=== PATIENT | male | born 1995 | race Caucasian/White ===

== ENCOUNTER 2021-01-22 21:58 | Emergency (ER) | payer OTHER ==
[~2021-01-22] VITALS: Ht 180.3 cm; Wt 93.4 kg
[2021-01-22 22:47] LABS: BASO % 0.4 % (0.0-1.0); EOS # 0.1 10^3/uL (0.0-0.5); EOS % 1.2 % (0.0-3.0); HEMATOCRIT 42.4 % (42.0-52.0); HEMOGLOBIN 14.5 g/dl (13.5-17.5); LYMPH # 2.5 10^3/uL (1.5-5.0); LYMPH % 30.7 % (24.0-44.0); MEAN CORPUSCULAR HEMOGLOBIN 28.8 pg (27.0-33.0); MEAN CORPUSCULAR HGB CONC 34.2 g/dl (32.0-36.5); MEAN CORPUSCULAR VOLUME 84.3 fl (80.0-96.0); MONO # 0.9 10^3/uL (0.0-0.8); MONO % 10.6 % (2.0-8.0); NEUTROPHILS # 4.6 10^3/uL (1.5-8.5); NEUTROPHILS % 56.7 % (36.0-66.0); PLATELET COUNT, AUTOMATED 226 10^3/uL (150-450); RED BLOOD COUNT 5.03 10^6/uL (4.30-6.10); WHITE BLOOD COUNT 8.2 10^3/uL (4.0-10.0)
--- NOTE | 2021-01-22 23:30 | REPVR ---
PROCEDURE INFORMATION: Exam: XR Chest Exam date and time: 01/22/21 (10:41pm) Age: 25 years old Clinical indication: Subjective fever TECHNIQUE: Imaging protocol: Portable CXR Views: 1 view COMPARISON: No relevant prior studies available FINDINGS: Lungs: Unremarkable. No consolidation. Pleural spaces: Unremarkable. No pleural effusions. No pneumothorax. Heart/Mediastinum: Unremarkable. No cardiomegaly. Bones/joints: Unremarkable. IMPRESSION: No acute findings. Clear lung greco. Electronically signed by: Gillian Antonio On 01/22/2021 23:29:58 PM
[2021-01-22] MEDS ORDERED: IBUP-1022 PO (23:45)
[2021-01-22 23:58] VITALS: BP 132/74
== END 2021-01-22 23:58 | disposition home or self-care (01) ==
LOC: M ED 21:58
DX: M79.10 Myalgia, unspecified site (principal); R42 Dizziness and giddiness; T50.Z95A Adverse effect of other vaccines and biological substances, initial encounter; Y92.9 Unspecified place or not applicable; Y93.9 Activity, unspecified